=== PATIENT | female | born 1965 | race Asian ===

== ENCOUNTER 2019-06-18 23:28 | Inpatient (IN) | payer MEDICARE, MEDICAID ==
[~2019-06-18] VITALS: Ht 165.1 cm; Wt 72.0 kg
[2019-06-18 23:35] VITALS: BP 120/66
[2019-06-18] MEDS ORDERED: Haloperidol 5mg/ml Inj IM ONE (23:45)
[2019-06-18] MEDS ORDERED: LORazepam Inj 2mg/ml 1ml IV ONE (23:45)
--- NOTE | 2019-06-18 23:46 | Emergency Room Report ---
History of Present Illness General Chief Complaint: General Complaint Source: Patient, Medical Record, PMD Present Illness HPI This is a 53-year-old female from a [facility]. She has a history of schizophrenia. She presents with chief plane of agitation. She was sent in by the psychiatrist Dr. Dsouza because of agitation. She was not cooperative at the [facility]. She is yelling and combative. She was sent here for evaluation. Patient denies any complaint. No fever chills but no nausea no vomiting. Patient is easily agitated. Not cooperative. History is limited because of her condition. Allergies: Coded Allergies: No Known Allergies (Unverified , 06/18/19) COVID-19 Screening Contact w/high risk pt: No Recent Travel to affected area: No Experienced COVID-19 symptoms?: No Patient History Past Medical History: see triage record, old chart reviewed, psych hx Past Surgical History: none Pertinent Family History: none Social History: Reports: smoking Last Menstrual Period: n/a Now: No Immunizations: other Reviewed Nursing Documentation: PMH: Agreed; PSxH: Agreed Nursing Documentation-PMH Past Medical History: No History, Except For Hx COPD: Yes - COPD History Of Psychiatric Problem: Yes - Schizophrenia Review of Systems Eye: Denies: eye pain, blurred vision ENT: Denies: ear pain, nose congestion, throat swelling Respiratory: Denies: cough, shortness of breath Cardiovascular: Denies: chest pain, palpitations Gastrointestinal: Denies: abdominal pain, diarrhea, nausea, vomiting Musculoskeletal: Denies: back pain, joint pain Skin: Denies: rash Neurological: Denies: headache, numbness Endocrine: Denies: increased thirst, increased urine Hematologic/Lymphatic: Denies: easy bruising All Other Systems: negative except mentioned in HPI Physical Exam Vital Signs Date Time Temp Pulse Resp B/P (MAP) Pulse Ox O2 Delivery O2 Flow Rate FiO2 06/18/19 23:30 98.2 88 18 120/66 (84) 98 Room Air Vitals unremarkable Sp02 EP Interpretation: reviewed, normal General Appearance: well appearing, no apparent distress, alert Head: normocephalic, atraumatic Eyes: bilateral eye PERRL, bilateral eye EOMI ENT: hearing grossly normal, normal pharynx Neck: full range of motion, supple, no meningismus Respiratory: chest non-tender, lungs clear, normal breath sounds Cardiovascular #1: regular rate, rhythm, no murmur Gastrointestinal: normal bowel sounds, non tender, no mass, no organomegaly, no bruit, non-distended Musculoskeletal: back normal, normal range of motion, gait/station normal Neurologic: alert, oriented Psychiatric: other - Easily agitated Medical Decision Making Diagnostic Impression: Primary Impression: Agitation Additional Impression: Schizophrenia, acute ER Course Patient presents with agitation and schizophrenia. Better after sedation and antipsychotic here. Dr. Medrano called here initially. I discussed the case with Dr. Smith primary care doctor at the [facility]. He asked that patient be admitted to Dr. Patino. I contacted Dr. Patino for admission. Rhythm Strip Diag. Results EP Interpretation: yes Rate: 88 Rhythm: NSR, no PVC's, no ectopy Last Vital Signs Date Time Temp Pulse Resp B/P (MAP) Pulse Ox O2 Delivery O2 Flow Rate FiO2 06/18/19 23:30 98.2 88 18 120/66 (84) 98 Room Air Status: improved Disposition: ADMITTED INPATIENT Condition: Serious Santos Gtz MD Jun 18, 2019 23:46
[2019-06-19 00:30] VITALS: BP 173/85
[2019-06-19 00:30] LABS: BASOPHILS % (AUTO) 0.7 % (0.0-2.0); EOSINOPHILS % (AUTO) 1.5 % (0.0-3.0); HEMATOCRIT 42.7 % (37.0-47.0); HEMOGLOBIN 14.8 G/DL (12.0-16.0); LYMPHOCYTES % (AUTO) 24.5 % (20.0-45.0); MEAN CORPUSCULAR VOLUME 90 FL (80-99); MONOCYTES % (AUTO) 7.9 % (1.0-10.0); NEUTROPHILS % (AUTO) 65.4 % (45.0-75.0); PLATELET COUNT 326 K/UL (150-450); RED BLOOD COUNT 4.72 M/UL (4.20-5.40); WHITE BLOOD COUNT 11.1 K/UL (4.8-10.8)
[2019-06-19 00:40] LABS: ANION GAP 12 mmol/L (5-15); BLOOD UREA NITROGEN 15 mg/dL (7-18); CALCIUM 9.4 MG/DL (8.5-10.1); CARBON DIOXIDE 27 MMOL/L (21-32); CHLORIDE 106 MMOL/L (98-107); CREATININE 0.9 MG/DL (0.55-1.30); POTASSIUM 3.8 MMOL/L (3.5-5.1); SODIUM 144 MMOL/L (136-145)
[2019-06-19] MEDS ORDERED: METOPROLOL TART25 MG ORAL (01:59)
[2019-06-19] MEDS ORDERED: RISPERIDONE3 MG ORAL (01:59)
[2019-06-19] MEDS ORDERED: DOCUSATE SODIU250 MG ORAL ×2 (01:59→04:33)
[2019-06-19] MEDS ORDERED: MYLANTA TONIGH355 ML PO (01:59)
[2019-06-19] MEDS ORDERED: MILK OF MA2400 MG/10 ORAL (01:59)
[2019-06-19] MEDS ORDERED: TRILEPTAL300 MG PO (01:59)
[2019-06-19] MEDS ORDERED: ACETAMINOPHEN325 M1 ORAL (01:59)
[2019-06-19] MEDS ORDERED: BENZTROPINE MESY1 MG ORAL (04:33)
[2019-06-19] MEDS ORDERED: MIRTAZAPINE30 MG ORAL (04:33)
[2019-06-19] MEDS ORDERED: TRILEPTAL600 MG PO (04:33)
[2019-06-19] MEDS ORDERED: ALBUTEROL2.5 MG/3 M INH ×2 (04:33)
[2019-06-19] MEDS ORDERED: RISPERDAL2 MG ORAL (04:33)
[2019-06-19 08:00] VITALS: BP 149/86
[2019-06-19] MEDS ORDERED: LORazepam Inj 2mg/ml 1ml IV PRN ×2 (08:00→17:15)
[2019-06-19] MEDS ORDERED: Docusate 250mg cap ORAL PRN (08:00)
[2019-06-19] MEDS ORDERED: Haloperidol 5mg/ml Inj IM PRN ×2 (08:00→23:45)
[2019-06-19] MEDS ORDERED: Albuterol ud Inhalation HHN PRN ×2 (08:00)
[2019-06-19] MEDS: OXcarbazepine 150mg tab ORAL SCH ×2 (09:37→17:08)
[2019-06-19] MEDS: Heparin 5000 units/ml inj SUBQ SCH ×2 (09:43→21:00)
[2019-06-19 12:00] VITALS: BP 133/76
--- NOTE | 2019-06-19 12:49 | Consultation ---
History of Present Illness General Date patient seen: Jun 19, 2019 Chief Complaint: General Complaint Present Illness HPI 53-year-old female a history of schizophrenia from a senior living presents with chief plane of agitation. She was sent in by the psychiatrist. She was not cooperative at the senior living. She is yelling and combative. She was sent here for evaluation. Patient denies any complaint. No fever chills but no nausea no vomiting. Patient is easily agitated. Not cooperative. History is limited because of her condition. Currently when I was interviewing her, she is very calm and doesn't have any complains. Allergies: Coded Allergies: No Known Allergies (Unverified , 06/18/19) Medication History Scheduled Metoprolol Tartrate* (Metoprolol Tartrate*), 25 MG ORAL EVERY 12 HOURS, ( Reported) Scheduled PRN Acetaminophen* (Acetaminophen 325MG Tablet*), 325 MG ORAL Q4H PRN for , ( Reported) Albuterol Sulfate* (Albuterol Sulfate Hhn*), 3 ML INH Q6H PRN for Shortness of Breath, (Reported) Albuterol Sulfate* (Albuterol Sulfate Hhn*), 3 ML INH EVERY 8 HOURS PRN for Shortness of Breath, (Reported) Benztropine Mesylate* (Benztropine Mesylate*), 1 MG ORAL BID PRN for Restlessness, (Reported) Docusate Sodium* (Docusate Sodium*), 250 MG ORAL NEEDED PRN for Constipation, (Reported) Mirtazapine* (Remeron*), 30 MG ORAL BEDTIME PRN for Agitation, (Reported) Oxcarbazepine* (Trileptal*), 300 MG PO BID PRN for For Seizures, (Reported) Risperidone* (Risperdal*), 3 MG ORAL BID PRN for Agitation, (Reported) Miscellaneous Medications Calcium Carb/Mag Hydrox/Simeth (Mylanta Tonight 800-270-80/10), 355 ML PO, ( Reported) Discontinued Medications Docusate Sodium* (Docusate Sodium*), 250 MG ORAL TWICE A DAY, (Reported) Discontinued Reason: MD discontinued med Magnesium Hydroxide* (Milk Of Magnesia*), 30 ML ORAL DAILY, (Reported) Discontinued Reason: Medication dose changed Oxcarbazepine (Trileptal), 300 MG PO, (Reported) Discontinued Reason: Medication dose changed Risperidone (Risperidone), 3 MG ORAL, (Reported) Discontinued Reason: Medication dose changed Patient History Healthcare decision maker Resuscitation status Full Code Advanced Directive on File Past Medical/Surgical History Past Medical/Surgical History: (1) Schizophrenia, acute Review of Systems All Other Systems: negative except mentioned in HPI Physical Exam General Appearance: WD/WN Lines, tubes and drains: peripheral HEENT: normocephalic, atraumatic Neck: non-tender, normal alignment Respiratory/Chest: chest wall non-tender, lungs clear Cardiovascular/Chest: normal peripheral pulses, normal rate Abdomen: normal bowel sounds, non tender Genitourinary/Rectal: normal genital exam Extremities: normal range of motion Last 24 Hour Vital Signs Date Time Temp Pulse Resp B/P (MAP) Pulse Ox O2 Delivery O2 Flow Rate FiO2 06/19/19 12:00 97.5 70 18 133/76 (95) 95 06/19/19 09:37 84 149/86 06/19/19 09:00 Room Air 06/19/19 08:00 97.9 84 20 149/86 (107) 99 06/19/19 02:47 Room Air 06/19/19 02:00 98.5 74 18 134/82 99 Room Air 06/19/19 00:30 98.5 80 18 173/85 98 Room Air 06/18/19 23:35 88 18 Room Air 06/18/19 23:35 98.2 77 18 120/66 98 Room Air 06/18/19 23:30 98.2 88 18 120/66 (84) 98 Room Air Intake and Output 06/18/19 06/19/19 19:00 07:00 Intake Total 700 ml Balance 700 ml Intake Oral 700 ml # Voids 3 Laboratory Tests Test 06/19/19 00:20 White Blood Count 11.1 K/UL (4.8-10.8) H Red Blood Count 4.72 M/UL (4.20-5.40) Hemoglobin 14.8 G/DL (12.0-16.0) Hematocrit 42.7 % (37.0-47.0) Mean Corpuscular Volume 90 FL (80-99) Mean Corpuscular Hemoglobin 31.4 PG (27.0-31.0) H Mean Corpuscular Hemoglobin Concent 34.7 G/DL (32.0-36.0) Red Cell Distribution Width 11.0 % (11.6-14.8) L Platelet Count 326 K/UL (150-450) Mean Platelet Volume 5.9 FL (6.5-10.1) L Neutrophils (%) (Auto) 65.4 % (45.0-75.0) Lymphocytes (%) (Auto) 24.5 % (20.0-45.0) Monocytes (%) (Auto) 7.9 % (1.0-10.0) Eosinophils (%) (Auto) 1.5 % (0.0-3.0) Basophils (%) (Auto) 0.7 % (0.0-2.0) Sodium Level 144 MMOL/L (136-145) Potassium Level 3.8 MMOL/L (3.5-5.1) Chloride Level 106 MMOL/L (98-107) Carbon Dioxide Level 27 MMOL/L (21-32) Anion Gap 12 mmol/L (5-15) Blood Urea Nitrogen 15 mg/dL (7-18) Creatinine 0.9 MG/DL (0.55-1.30) Estimat Glomerular Filtration Rate > 60 mL/min (>60) Glucose Level 114 MG/DL (74-106) H Calcium Level 9.4 MG/DL (8.5-10.1) Height (Feet): 5 Height (Inches): 5.00 Weight (Pounds): 159 Medications Current Medications Medications (Trade) Dose Ordered Sig/Carla Route PRN Reason Start Time Stop Time Status Last Admin Dose Admin Acetaminophen (Tylenol) 325 mg Q4H PRN ORAL 06/19/19 08:00 07/19/19 07:59 Al Hydroxide/Mg Hydroxide (Mylanta) 30 ml Q6H PRN ORAL Abdominal cramps 06/19/19 08:00 07/19/19 07:59 Albuterol Sulfate (Proventil) 2.5 mg Q6H PRN HHN Shortness of Breath 06/19/19 08:00 06/24/19 07:59 Benztropine Mesylate (Cogentin) 1 mg BID PRN ORAL Restlessness 06/19/19 08:00 07/19/19 07:59 Docusate Sodium (Colace) 250 mg NEEDED PRN ORAL Constipation 06/19/19 08:00 07/19/19 07:59 Haloperidol Lactate (Haldol) 4 mg Q4H PRN IM Agitation 06/19/19 08:00 08/03/19 07:59 Heparin Sodium (Porcine) (Heparin 5000 units/ml) 5,000 units EVERY 12 HOURS SUBQ 06/19/19 09:00 08/03/19 08:59 Lorazepam (Ativan 2mg/ml 1ml) 1 mg Q6H PRN IV For Anxiety 06/19/19 08:00 06/26/19 07:59 Metoprolol Tartrate (Lopressor) 25 mg EVERY 12 HOURS ORAL 06/19/19 09:00 09/17/19 08:59 06/19/19 09:37 Mirtazapine (Remeron) 30 mg BEDTIME ORAL 06/19/19 21:00 09/17/19 20:59 Ondansetron HCl (Zofran) 4 mg PRN PRN IVP Nausea & Vomiting 06/19/19 01:30 Oxcarbazepine (TrileptaL) 300 mg BID ORAL 06/19/19 09:00 07/19/19 08:59 06/19/19 09:37 Risperidone (RisperDAL) 3 mg BID PRN ORAL Agitation 06/19/19 08:15 08/03/19 08:14 06/19/19 09:43 Assessment/Plan Problem List: (1) Schizophrenia, acute ICD Codes: F23 - Brief psychotic disorder SNOMED: 088771930 (2) Agitation ICD Codes: R45.1 - Restlessness and agitation SNOMED: 671338705 Assessment/Plan: psych evaluation symptomatic treatment continue senior living meds dvt prophylaxis. Brenda Davila MD Jun 19, 2019 12:49
[2019-06-19 16:00] VITALS: BP 140/77
[2019-06-19] MEDS: LORazepam 1mg tab ORAL PRN (17:08)
[2019-06-19] MEDS ORDERED: Haloperidol Decanoate (Long Acting) 50mg Inj IM SCH (18:00)
--- NOTE | 2019-06-19 18:20 | History & Physical ---
History and Physical History & Physicial Dictated for Int Med-Dr Patino no. [id number]. Toni Johnson MD Jun 19, 2019 18:20
[2019-06-19 20:00] VITALS: BP 148/86
[2019-06-20] VITALS (11 sets, daily range): BP systolic 97–150; BP diastolic 61–95
[2019-06-20 06:36] LABS: BASOPHILS % (AUTO) 1.3 % (0.0-2.0); EOSINOPHILS % (AUTO) 3.4 % (0.0-3.0); HEMATOCRIT 43.5 % (37.0-47.0); HEMOGLOBIN 14.9 G/DL (12.0-16.0); LYMPHOCYTES % (AUTO) 32.3 % (20.0-45.0); MEAN CORPUSCULAR VOLUME 92 FL (80-99); MONOCYTES % (AUTO) 9.3 % (1.0-10.0); NEUTROPHILS % (AUTO) 53.7 % (45.0-75.0); PLATELET COUNT 296 K/UL (150-450); RED BLOOD COUNT 4.74 M/UL (4.20-5.40); RED CELL DISTRIBUTION WIDTH 11.1 % (11.6-14.8); WHITE BLOOD COUNT 7.4 K/UL (4.8-10.8)
[2019-06-20 07:33] LABS: ANION GAP 9 mmol/L (5-15); BLOOD UREA NITROGEN 14 mg/dL (7-18); CALCIUM 8.6 MG/DL (8.5-10.1); CARBON DIOXIDE 28 MMOL/L (21-32); CHLORIDE 107 MMOL/L (98-107); CREATININE 0.8 MG/DL (0.55-1.30); PHOSPHORUS 4.1 MG/DL (2.5-4.9); POTASSIUM 4.1 MMOL/L (3.5-5.1); SODIUM 144 MMOL/L (136-145)
--- NOTE | 2019-06-20 08:43 | History and Physical Report ---
DATE OF ADMISSION: 06/19/2019 CHIEF COMPLAINT: Patient is a 53-year-old female, who presents with a chief complaint of increased agitation. HISTORY OF PRESENT ILLNESS: Patient has a history of schizophrenia. Patient is a resident of [facility]. According to staff at [facility], patient has been increasingly agitated over the past 2 days. Patient has been throwing things at the staff. Patient was running up and down the hallways. Patient presented to [facility] emergency room. Patient was admitted with chief complaint of increased agitation. REVIEW OF SYSTEMS: Unable to assess secondary to patient's mental status. PAST MEDICAL HISTORY: Significant for: 1. Hypertension. 2. Schizophrenia. 3. Depression. 4. Chronic obstructive pulmonary disease. 5. Parkinson disease. 6. Extrapyramidal movement disorder. 7. Osteoarthritis. 8. Obesity. 9. Seizure disorder. 10. Gastroesophageal reflux disease. 11. Hypercholesterolemia. PAST SURGICAL HISTORY: Unknown. CURRENT MEDICATIONS: 1. Albuterol 2.5 mg nebulized q.4h. p.r.n. 2. Benztropine 1 mg p.o. twice daily. 3. Metoprolol 25 mg p.o. twice daily. 4. Remeron 30 mg p.o. at bedtime. 5. Trileptal 300 mg p.o. twice daily. 6. Risperdal 3 mg p.o. twice daily. ALLERGIES: No known drug allergies. SOCIAL HISTORY: Patient is single. Patient denies tobacco or alcohol use. PHYSICAL EXAMINATION: VITAL SIGNS: Temperature 98.2, respirations 18, pulse 80, blood pressure 120/66, pulse oximetry 98% on room air. GENERAL: Patient is a well-developed, well-nourished, obese, female, in no apparent distress. HEENT: Eyes, pupils are equal and responsive to light and accommodation. Extraocular movements are intact. NECK: Supple without lymphadenopathy. CHEST: Lungs are clear to auscultation bilaterally without wheezes or rales. CARDIOVASCULAR: Regular rhythm and rate. S1 and S2 are normal without murmurs, rubs, or gallops. ABDOMEN: Soft, nontender, and nondistended. Positive bowel sounds. No evidence of hepatosplenomegaly. Currently, no rebound or guarding noted. EXTREMITIES: Negative for clubbing, cyanosis, or edema. RECTAL/GENITAL: Not performed. NEUROLOGIC: Cranial nerves II through XII are grossly intact without focal deficits. LABORATORY STUDIES: WBC 1.1, hemoglobin 14.8, hematocrit 42.7, platelets 326,000. Sodium 144, potassium 3.8, chloride 106, CO2 27, BUN 15, creatinine 0.9, glucose 114. ASSESSMENT: This is a 53-year-old female: 1. Increased agitation. 2. Schizophrenia. 3. Chronic obstructive pulmonary disease. 4. Parkinson disease. 5. Extrapyramidal movement disorder. 6. Hypertension. 7. Seizure disorder. 8. Hypercholesterolemia. 9. Gastroesophageal reflux disease. TREATMENT: 1. Increased agitation/schizophrenia. A Psychiatry consultation has been obtained with Dr. Medrano. We will follow recommendations of Psychiatry. 2. Chronic obstructive pulmonary disease. Continue albuterol nebulizer as above. A Pulmonary consultation has been obtained with Dr. Brenda Davila. 3. Parkinson disease/extrapyramidal movement disorder. Continue Cogentin as above. 4. Hypertension. Continue metoprolol as above. 5. History of seizure disorder. 6. Hypercholesterolemia. 7. Gastroesophageal reflux disease. Toni Johnson M.D. DR: BRADLY JOB#: [id number] CC:
[2019-06-20] MEDS: Heparin 5000 units/ml inj SUBQ SCH ×2 (09:00→21:00)
--- NOTE | 2019-06-20 09:14 | Consultation ---
DATE OF CONSULTATION: HISTORY OF PRESENT ILLNESS: The patient is a 53-year-old female with a history of schizophrenia, who is well known to this physician from her correction. The patient has been having episodes of agitation and screaming, yelling, psychotic episodes, mood lability, being uncooperative with the staff and not following the directions. The patient was initially send to [facility], however the emergency room was shot down, therefore, she was returned to the facility. At the facility, she became more agitated and psychotic. Therefore, she was transferred to the [facility]. The patient is uncooperative during examination, she was refusing questions. Poor insight. The patient is uncooperative and repeatedly asking for food and snacks. PAST PSYCHIATRIC HISTORY: Significant for schizophrenia and several psychiatric hospitalization, treated with risperidone at the facility, has been refusing to take all her antipsychotic medications. PAST MEDICAL HISTORY: Nonsignificant. ALLERGIES: No known drug allergies. SUBSTANCE ABUSE HISTORY: No known history of illicit drug use or alcohol. MENTAL STATUS EXAMINATION: The patient is alert and oriented to time, self, place, and situation. Mood is labile. Affect is flat. Thought process is concrete. Thought content, there is no suicidal or homicidal ideation. Cognition is intact. Insight and judgment is poor. ASSESSMENT: [place] I: 1. Schizophrenia. 2. Rule out schizoaffective disorder. AXIS II: Deferred. AXIS III: As above. AXIS IV: Moderate. AXIS V: 50. PLAN: 1. Discontinue the Ativan as needed. Change the Haldol to 5 milligram every 6 hours. 2. Discontinue Remeron. 3. Risperidone 2 milligram h.s. 4. [place]. 5. Haldol decanoate was given. Altagracia Medrano M.D. DR: Tony JOB#: [id number] CC:
[2019-06-20] MEDS: OXcarbazepine 150mg tab ORAL SCH ×2 (10:00→17:09)
[2019-06-20] MEDS: Benztropine 1mg tab ORAL PRN (10:00)
[2019-06-20] MEDS: LORazepam 1mg tab ORAL PRN ×2 (10:00→17:09)
--- NOTE | 2019-06-20 22:28 | Internal Med Progress Note ---
Subjective Physician Name Fredy Patino Attending Physician Fredy Patino MD Current Medications Medications (Trade) Dose Ordered Sig/Carla Route PRN Reason Start Time Stop Time Status Last Admin Dose Admin Acetaminophen (Tylenol) 650 mg Q4H PRN ORAL Mild Pain (Pain Scale 1-3) 06/19/19 16:00 07/19/19 07:59 Al Hydroxide/Mg Hydroxide (Mylanta) 30 ml Q6H PRN ORAL Abdominal cramps 06/19/19 08:00 07/19/19 07:59 Albuterol Sulfate (Proventil) 2.5 mg Q6H PRN HHN Shortness of Breath 06/19/19 08:00 06/24/19 07:59 Benztropine Mesylate (Cogentin) 1 mg BID PRN ORAL Restlessness 06/19/19 08:00 07/19/19 07:59 06/20/19 10:00 Docusate Sodium (Colace) 250 mg NEEDED PRN ORAL Constipation 06/19/19 08:00 07/19/19 07:59 Haloperidol Decanoate (Haldol Decanoate(Long Acting)) 100 mg QMONTH IM 06/19/19 18:00 08/03/19 17:59 06/19/19 18:25 Haloperidol Lactate (Haldol) 5 mg EVERY 6 HOURS PRN IM Agitation 06/19/19 23:45 08/03/19 23:44 Heparin Sodium (Porcine) (Heparin 5000 units/ml) 5,000 units EVERY 12 HOURS SUBQ 06/19/19 09:00 08/03/19 08:59 [place] Carbonate ([place] Carbonate) 600 mg BEDTIME ORAL 06/20/19 21:00 09/18/19 20:59 Lorazepam (Ativan) 2 mg Q6H PRN ORAL For Anxiety 06/19/19 17:15 06/26/19 17:14 06/20/19 17:09 Metoprolol Tartrate (Lopressor) 25 mg EVERY 12 HOURS ORAL 06/19/19 09:00 09/17/19 08:59 06/20/19 10:00 Oxcarbazepine (TrileptaL) 300 mg BID ORAL 06/19/19 09:00 07/19/19 08:59 06/20/19 17:09 Risperidone (RisperDAL) 2 mg BEDTIME ORAL 06/20/19 21:00 6/1/20 20:59 Allergies: Coded Allergies: No Known Allergies (Unverified , 06/18/19) Subjective agitated, sedated, refuse med's. Objective Last Vital Signs Date Time Temp Pulse Resp B/P (MAP) Pulse Ox O2 Delivery O2 Flow Rate FiO2 06/20/19 20:00 98.2 77 18 129/71 (90) 95 06/20/19 09:00 Room Air Laboratory Tests Test 06/20/19 05:40 White Blood Count 7.4 K/UL (4.8-10.8) Red Blood Count 4.74 M/UL (4.20-5.40) Hemoglobin 14.9 G/DL (12.0-16.0) Hematocrit 43.5 % (37.0-47.0) Mean Corpuscular Volume 92 FL (80-99) Mean Corpuscular Hemoglobin 31.5 PG (27.0-31.0) H Mean Corpuscular Hemoglobin Concent 34.3 G/DL (32.0-36.0) Red Cell Distribution Width 11.1 % (11.6-14.8) L Platelet Count 296 K/UL (150-450) Mean Platelet Volume 6.3 FL (6.5-10.1) L Neutrophils (%) (Auto) 53.7 % (45.0-75.0) Lymphocytes (%) (Auto) 32.3 % (20.0-45.0) Monocytes (%) (Auto) 9.3 % (1.0-10.0) Eosinophils (%) (Auto) 3.4 % (0.0-3.0) H Basophils (%) (Auto) 1.3 % (0.0-2.0) Sodium Level 144 MMOL/L (136-145) Potassium Level 4.1 MMOL/L (3.5-5.1) Chloride Level 107 MMOL/L (98-107) Carbon Dioxide Level 28 MMOL/L (21-32) Anion Gap 9 mmol/L (5-15) Blood Urea Nitrogen 14 mg/dL (7-18) Creatinine 0.8 MG/DL (0.55-1.30) Estimat Glomerular Filtration Rate > 60 mL/min (>60) Glucose Level 101 MG/DL (74-106) Calcium Level 8.6 MG/DL (8.5-10.1) Phosphorus Level 4.1 MG/DL (2.5-4.9) Magnesium Level 2.0 MG/DL (1.8-2.4) Thyroid Stimulating Hormone (TSH) 11.994 uiU/mL (0.358-3.740) Microbiology Date/Time Source Procedure Growth Status 06/19/19 01:50 Nasal Nares MRSA Culture - Final NO METHICILLIN RESISTANT STAPH AUREUS... Complete Intake and Output 06/19/19 06/20/19 19:00 07:00 # Voids 4 3 Objective General: No acute distress, awake and agitated. HEENT: NCAT, sclera anicteric, PERRL, EOMI. Neck: Supple, no significant jugular venous distention, Lungs: Good inspiratory effort, decrease air at bases, no Wheeze or Rales. Heart: Regular rate and rhythm, normal S1/S2, no murmurs. Abdomen: soft, nontender, nondistended. Normoactive bowel sounds, Morbid obesity. / Rectal: Refused and deferred. Extremities: No Cyanosis , clubbing or edema. Neuro: A&O x 3, Able to move all extremities Skin: warm, no rashes or lesions Psych: anxious Assessment/Plan Assessment/Plan 1. Increased agitation. 2. Schizophrenia. 3. Chronic obstructive pulmonary disease. 4. Parkinson disease. 5. Extrapyramidal movement disorder. 6. Hypertension. 7. Seizure disorder. 8. Hypercholesterolemia. 9. Gastroesophageal reflux disease. TREATMENT: 1. Increased agitation/schizophrenia. A Psychiatry consultation has been obtained with Dr. Medrano. We will follow recommendations of Psychiatry. 2. Chronic obstructive pulmonary disease. Continue albuterol nebulizer as above. A Pulmonary consultation has been obtained with Dr. Brenda Davila. 3. Parkinson disease/extrapyramidal movement disorder. Continue Cogentin as above. 4. Hypertension. Continue metoprolol as above. 5. History of seizure disorder. 6. Hypercholesterolemia. 7. Gastroesophageal reflux disease. Fredy Patino MD Jun 20, 2019 22:28
--- NOTE | 2019-06-20 23:13 | Psych Consult Progress Note ---
Psychiatry Progress Note Psychiatry Progress Note Subjective the pt is internally preoccupied and responds to internal stimuli. the pt doesnt want to take meds and the staff has to offer and encourage her to take meds many times. the pt has poor insight and constantly asks for snacks. Medications Current Medications Medications (Trade) Dose Ordered Sig/Carla Route PRN Reason Start Time Stop Time Status Last Admin Dose Admin Acetaminophen (Tylenol) 650 mg Q4H PRN ORAL Mild Pain (Pain Scale 1-3) 06/19/19 16:00 07/19/19 07:59 Al Hydroxide/Mg Hydroxide (Mylanta) 30 ml Q6H PRN ORAL Abdominal cramps 06/19/19 08:00 07/19/19 07:59 Albuterol Sulfate (Proventil) 2.5 mg Q6H PRN HHN Shortness of Breath 06/19/19 08:00 06/24/19 07:59 Benztropine Mesylate (Cogentin) 1 mg BID PRN ORAL Restlessness 06/19/19 08:00 07/19/19 07:59 06/20/19 10:00 Docusate Sodium (Colace) 250 mg NEEDED PRN ORAL Constipation 06/19/19 08:00 07/19/19 07:59 Haloperidol Decanoate (Haldol Decanoate(Long Acting)) 100 mg QMONTH IM 06/19/19 18:00 08/03/19 17:59 06/19/19 18:25 Haloperidol Lactate (Haldol) 5 mg EVERY 6 HOURS PRN IM Agitation 06/19/19 23:45 08/03/19 23:44 Heparin Sodium (Porcine) (Heparin 5000 units/ml) 5,000 units EVERY 12 HOURS SUBQ 06/19/19 09:00 08/03/19 08:59 [place] Carbonate ([place] Carbonate) 600 mg BEDTIME ORAL 06/20/19 21:00 09/18/19 20:59 06/20/19 22:35 Lorazepam (Ativan) 2 mg Q6H PRN ORAL For Anxiety 06/19/19 17:15 06/26/19 17:14 06/20/19 17:09 Metoprolol Tartrate (Lopressor) 25 mg EVERY 12 HOURS ORAL 06/19/19 09:00 09/17/19 08:59 06/20/19 22:35 Oxcarbazepine (TrileptaL) 300 mg BID ORAL 06/19/19 09:00 07/19/19 08:59 06/20/19 17:09 Risperidone (RisperDAL) 2 mg BEDTIME ORAL 06/20/19 21:00 08/04/19 20:59 06/20/19 22:35 Allergies: Coded Allergies: No Known Allergies (Unverified , 06/18/19) Objective Data Height (Feet): 5 Height (Inches): 5.00 Weight (Pounds): 158 General Appearance: WD/WN, no apparent distress, alert, overweight, alert oriented x3 Appearance: disheveled Behavior Mannerisms: poor eye contact Mental Status Exam - Affect: constricted Mental Status Exam - Mood: depressed Speech: clear Mental Status Exam - Thought P: illogical, disorganized Perceptual Disturbances: auditory Mental Status Exam - Suicidal: not present Assessment/Plan Problem List: (1) Schizophrenia, acute ICD Codes: F23 - Brief psychotic disorder SNOMED: [id number] Assessment/Plan: risperdal 4mg po qhs halsol dec was given yesterday lithium. tye and ativan Altagracia Garcia MD Jun 20, 2019 23:13
[2019-06-21 08:00] VITALS: BP 154/74
--- NOTE | 2019-06-21 08:01 | Pulmonology Progress Note ---
Assessment/Plan Assessment/Plan ASSESSMENT Schizophrenia COPD Elevated TSH Hypertension Parkinson disease Mild leukocytosis, likely reactive -resolved Seizure disorder Parkinson's disease Osteoarthritis PLAN of CARE MS floor psychiatric medication regimen optimized as per psychiatrist O2 HHN PRN pulse ox remained stable on room air mild initial leukocytosis resolved, likely reactive elevated TSH, check free T4 T3 BP management with beta-blockers DVT prophylaxis seizure precaution supportive care case discussed and evaluated by supervising physician Subjective Allergies: Coded Allergies: No Known Allergies (Unverified , 06/18/19) Subjective slightly anxious, pacing the room, but following commands no signs of respiratory distress Objective Last 24 Hour Vital Signs Date Time Temp Pulse Resp B/P (MAP) Pulse Ox O2 Delivery O2 Flow Rate FiO2 06/20/19 22:35 77 129/71 06/20/19 21:00 Room Air 06/20/19 20:00 98.2 77 18 129/71 (90) 95 06/20/19 16:00 98.5 76 19 122/84 (97) 95 06/20/19 12:00 97.9 66 18 137/77 (97) 97 06/20/19 10:00 70 132/69 06/20/19 09:00 Room Air 06/20/19 08:00 97.7 70 19 132/69 (90) 98 Intake and Output 06/20/19 06/21/19 19:00 07:00 Intake Total 1200 ml 1740 ml Balance 1200 ml 1740 ml Intake Oral 1200 ml 1740 ml # Voids 4 4 General Appearance: no acute distress, other HEENT: normocephalic, atraumatic, anicteric, mucous membranes moist Respiratory/Chest: lungs clear, no accessory muscle use Cardiovascular: normal rate Abdomen: normal bowel sounds, soft, non tender Extremities: no edema, pedal pulses normal Neurologic/Psychiatric: alert, oriented x 3, responsive, other - anxious Musculoskeletal: normal muscle bulk Microbiology Date/Time Source Procedure Growth Status 06/19/19 01:50 Nasal Nares MRSA Culture - Final NO METHICILLIN RESISTANT STAPH AUREUS... Complete Current Medications Medications (Trade) Dose Ordered Sig/Carla Route PRN Reason Start Time Stop Time Status Last Admin Dose Admin Acetaminophen (Tylenol) 650 mg Q4H PRN ORAL Mild Pain (Pain Scale 1-3) 06/19/19 16:00 07/19/19 07:59 Al Hydroxide/Mg Hydroxide (Mylanta) 30 ml Q6H PRN ORAL Abdominal cramps 06/19/19 08:00 07/19/19 07:59 Albuterol Sulfate (Proventil) 2.5 mg Q6H PRN HHN Shortness of Breath 06/19/19 08:00 06/24/19 07:59 Benztropine Mesylate (Cogentin) 1 mg BID PRN ORAL Restlessness 06/19/19 08:00 07/19/19 07:59 06/20/19 10:00 Docusate Sodium (Colace) 250 mg NEEDED PRN ORAL Constipation 06/19/19 08:00 07/19/19 07:59 Haloperidol Decanoate (Haldol Decanoate(Long Acting)) 100 mg QMONTH IM 06/19/19 18:00 08/03/19 17:59 06/19/19 18:25 Haloperidol Lactate (Haldol) 5 mg EVERY 6 HOURS PRN IM Agitation 06/19/19 23:45 08/03/19 23:44 Heparin Sodium (Porcine) (Heparin 5000 units/ml) 5,000 units EVERY 12 HOURS SUBQ 06/19/19 09:00 08/03/19 08:59 [place] Carbonate ([place] Carbonate) 600 mg BEDTIME ORAL 06/20/19 21:00 09/18/19 20:59 06/20/19 22:35 Lorazepam (Ativan) 2 mg Q6H PRN ORAL For Anxiety 06/19/19 17:15 06/26/19 17:14 06/20/19 17:09 Metoprolol Tartrate (Lopressor) 25 mg EVERY 12 HOURS ORAL 06/19/19 09:00 09/17/19 08:59 06/20/19 22:35 Oxcarbazepine (TrileptaL) 300 mg BID ORAL 06/19/19 09:00 07/19/19 08:59 06/20/19 17:09 Risperidone (RisperDAL) 4 mg BEDTIME ORAL 06/21/19 21:00 08/05/19 20:59 Estela Phillips [employer] Jun 21, 2019 08:01
[2019-06-21] MEDS: OXcarbazepine 150mg tab ORAL SCH ×2 (10:00→17:43)
[2019-06-21] MEDS: Heparin 5000 units/ml inj SUBQ SCH ×2 (10:00→20:34)
[2019-06-21 10:22] LABS: BASOPHILS % (AUTO) 0.9 % (0.0-2.0); HEMATOCRIT 43.9 % (37.0-47.0); HEMOGLOBIN 14.8 G/DL (12.0-16.0); LYMPHOCYTES % (AUTO) 31.1 % (20.0-45.0); MEAN CORPUSCULAR VOLUME 91 FL (80-99); MONOCYTES % (AUTO) 9.8 % (1.0-10.0); NEUTROPHILS % (AUTO) 55.2 % (45.0-75.0); PLATELET COUNT 327 K/UL (150-450); RED BLOOD COUNT 4.81 M/UL (4.20-5.40); WHITE BLOOD COUNT 8.6 K/UL (4.8-10.8)
[2019-06-21] MEDS: Benztropine 1mg tab ORAL PRN (10:44)
[2019-06-21] MEDS: LORazepam 1mg tab ORAL PRN ×2 (10:44→17:44)
[2019-06-21 10:53] LABS: ANION GAP 10 mmol/L (5-15); BLOOD UREA NITROGEN 15 mg/dL (7-18); CALCIUM 8.8 MG/DL (8.5-10.1); CARBON DIOXIDE 26 MMOL/L (21-32); CHLORIDE 107 MMOL/L (98-107); CREATININE 0.8 MG/DL (0.55-1.30); SODIUM 143 MMOL/L (136-145)
--- NOTE | 2019-06-21 11:40 | Internal Med Progress Note ---
Subjective Date of Service: Jun 21, 2019 Physician Name ElizabethToni Attending Physician Fredy Patino MD Current Medications Medications (Trade) Dose Ordered Sig/Carla Route PRN Reason Start Time Stop Time Status Last Admin Dose Admin Acetaminophen (Tylenol) 650 mg Q4H PRN ORAL Mild Pain (Pain Scale 1-3) 06/19/19 16:00 07/19/19 07:59 Al Hydroxide/Mg Hydroxide (Mylanta) 30 ml Q6H PRN ORAL Abdominal cramps 06/19/19 08:00 07/19/19 07:59 Albuterol Sulfate (Proventil) 2.5 mg Q6H PRN HHN Shortness of Breath 06/19/19 08:00 06/24/19 07:59 Benztropine Mesylate (Cogentin) 1 mg BID PRN ORAL Restlessness 06/19/19 08:00 07/19/19 07:59 06/21/19 10:44 Docusate Sodium (Colace) 250 mg NEEDED PRN ORAL Constipation 06/19/19 08:00 07/19/19 07:59 Haloperidol Decanoate (Haldol Decanoate(Long Acting)) 100 mg QMONTH IM 06/19/19 18:00 08/03/19 17:59 06/19/19 18:25 Haloperidol Lactate (Haldol) 5 mg EVERY 6 HOURS PRN IM Agitation 06/19/19 23:45 08/03/19 23:44 Heparin Sodium (Porcine) (Heparin 5000 units/ml) 5,000 units EVERY 12 HOURS SUBQ 06/19/19 09:00 08/03/19 08:59 [place] Carbonate ([place] Carbonate) 600 mg BEDTIME ORAL 06/20/19 21:00 09/18/19 20:59 06/20/19 22:35 Lorazepam (Ativan) 2 mg Q6H PRN ORAL For Anxiety 06/19/19 17:15 06/26/19 17:14 06/21/19 10:44 Metoprolol Tartrate (Lopressor) 25 mg EVERY 12 HOURS ORAL 06/19/19 09:00 09/17/19 08:59 06/20/19 22:35 Oxcarbazepine (TrileptaL) 300 mg BID ORAL 06/19/19 09:00 07/19/19 08:59 4/17/20 17:09 Risperidone (RisperDAL) 4 mg BEDTIME ORAL 06/21/19 21:00 08/05/19 20:59 Allergies: Coded Allergies: No Known Allergies (Unverified , 06/18/19) ROS Limited/Unobtainable: Yes Subjective 53 YO F with history of schizophrenia admitted with increased agitation. Cover for Int [facility]-Dr Patino Objective Last Vital Signs Date Time Temp Pulse Resp B/P (MAP) Pulse Ox O2 Delivery O2 Flow Rate FiO2 06/21/19 10:00 91 154/74 06/21/19 09:00 Room Air 06/21/19 08:00 97.0 20 97 Laboratory Tests Test 06/21/19 10:05 White Blood Count 8.6 K/UL (4.8-10.8) Red Blood Count 4.81 M/UL (4.20-5.40) Hemoglobin 14.8 G/DL (12.0-16.0) Hematocrit 43.9 % (37.0-47.0) Mean Corpuscular Volume 91 FL (80-99) Mean Corpuscular Hemoglobin 30.8 PG (27.0-31.0) Mean Corpuscular Hemoglobin Concent 33.8 G/DL (32.0-36.0) Red Cell Distribution Width 11.0 % (11.6-14.8) L Platelet Count 327 K/UL (150-450) Mean Platelet Volume 5.6 FL (6.5-10.1) L Neutrophils (%) (Auto) 55.2 % (45.0-75.0) Lymphocytes (%) (Auto) 31.1 % (20.0-45.0) Monocytes (%) (Auto) 9.8 % (1.0-10.0) Eosinophils (%) (Auto) 3.0 % (0.0-3.0) Basophils (%) (Auto) 0.9 % (0.0-2.0) Sodium Level 143 MMOL/L (136-145) Potassium Level 4.0 MMOL/L (3.5-5.1) Chloride Level 107 MMOL/L (98-107) Carbon Dioxide Level 26 MMOL/L (21-32) Anion Gap 10 mmol/L (5-15) Blood Urea Nitrogen 15 mg/dL (7-18) Creatinine 0.8 MG/DL (0.55-1.30) Estimat Glomerular Filtration Rate > 60 mL/min (>60) Glucose Level 154 MG/DL (74-106) H Calcium Level 8.8 MG/DL (8.5-10.1) Free Thyroxine 0.81 NG/DL (0.76-1.46) Free Triiodothyronine 2.4 pg/mL (2.3-4.2) Microbiology Date/Time Source Procedure Growth Status 06/19/19 01:50 Nasal Nares MRSA Culture - Final NO METHICILLIN RESISTANT STAPH AUREUS... Complete Intake and Output 06/20/19 06/21/19 19:00 07:00 Intake Total 1200 ml 1740 ml Balance 1200 ml 1740 ml Intake Oral 1200 ml 1740 ml # Voids 4 4 Assessment/Plan Assessment/Plan ASSESSMENT: This is a 53-year-old female: 1. Increased agitation. 2. Schizophrenia. 3. Chronic obstructive pulmonary disease. 4. Parkinson disease. 5. Extrapyramidal movement disorder. 6. Hypertension. 7. Seizure disorder. 8. Hypercholesterolemia. 9. Gastroesophageal reflux disease. TREATMENT: 1. Increased agitation/schizophrenia. A Psychiatry consultation has been obtained with Dr. Medrano. Continue haldol, lithium and risperdal per recommendations of Psychiatry. 2. Chronic obstructive pulmonary disease. Continue albuterol nebulizer as above. A Pulmonary consultation has been obtained with Dr. Brenda Davila. 3. Parkinson disease/extrapyramidal movement disorder. Continue Cogentin as above. 4. Hypertension. Continue metoprolol as above. 5. History of seizure disorder. 6. Hypercholesterolemia. 7. Gastroesophageal reflux disease. 8. Full code 9. DVT prophylaxis=patient refusing SQ heparin Toni Johnson MD Jun 21, 2019 11:40
[2019-06-21 16:00] VITALS: BP 149/85
[2019-06-21 20:21] VITALS: BP 145/75
--- NOTE | 2019-06-22 01:59 | Progress Note ---
DATE: 06/21/2019 SUBJECTIVE: The patient is still difficult to redirect, needs prompting to take her medication, responding to internal stimuli. I spoke to the nurse. The patient took her daily medications this morning as she was getting agitated. MENTAL STATUS EXAMINATION: The patient is alert and oriented times self, place, and situation. Mood is irritable. Thought process is concrete. Thought content, no suicidal or homicidal ideations. Cognition is impaired. Insight and judgment, impaired. ASSESSMENT: Schizophrenia. PLAN: 1. Continue lithium. 2. Continue risperidone. 3. Ativan as needed. 4. Continue to follow and readjust her medications. Altagracia Medrano M.D. DR: Breezy JOB#: [id number] CC:
--- NOTE | 2019-06-22 08:29 | Pulmonology Progress Note ---
Assessment/Plan Assessment/Plan ASSESSMENT Schizophrenia COPD Elevated TSH Hypertension Parkinson disease Mild leukocytosis, likely reactive -resolved Seizure disorder Parkinson's disease Osteoarthritis PLAN of CARE MS floor psychiatric medication regimen optimized as per psychiatrist O2 HHN PRN pulse ox remained stable on room air mild initial leukocytosis resolved, likely reactive elevated TSH, free T4 T3 WNL, likely subclinical hypothyroidism, repeat TFT in 1 month BP management with beta-blockers DVT prophylaxis seizure precaution supportive care case discussed and evaluated by supervising physician Subjective Allergies: Coded Allergies: No Known Allergies (Unverified , 06/18/19) Subjective slightly anxious, but following commands no signs of respiratory distress Objective Last 24 Hour Vital Signs Date Time Temp Pulse Resp B/P (MAP) Pulse Ox O2 Delivery O2 Flow Rate FiO2 06/22/19 07:05 86 20 97 Room Air 21 06/21/19 20:32 88 20 98 Room Air 21 06/21/19 20:30 89 145/75 06/21/19 20:21 96.7 89 20 145/75 (98) 99 06/21/19 20:02 Room Air 06/21/19 16:00 97.6 88 18 149/85 (106) 0 06/21/19 10:00 91 154/74 06/21/19 09:00 Room Air Intake and Output 06/21/19 06/22/19 19:00 07:00 Intake Total 720 ml Balance 720 ml Intake Oral 720 ml # Voids 5 Objective General Appearance: no acute distress, other HEENT: normocephalic, atraumatic, anicteric, mucous membranes moist Respiratory/Chest: lungs clear, no accessory muscle use Cardiovascular: normal rate Abdomen: normal bowel sounds, soft, non tender Extremities: no edema, pedal pulses normal Neurologic/Psychiatric: alert, oriented x 3, responsive, anxious Musculoskeletal: normal muscle bulk Laboratory Tests 06/21/19 10:05: White Blood Count 8.6, Red Blood Count 4.81, Hemoglobin 14.8, Hematocrit 43.9, Mean Corpuscular Volume 91, Mean Corpuscular Hemoglobin 30.8, Mean Corpuscular Hemoglobin Concent 33.8, Red Cell Distribution Width 11.0L, Platelet Count 327, Mean Platelet Volume 5.6L, Neutrophils (%) (Auto) 55.2, Lymphocytes (%) (Auto) 31.1, Monocytes (%) (Auto) 9.8, Eosinophils (%) (Auto) 3.0, Basophils (%) (Auto ) 0.9, Sodium Level 143, Potassium Level 4.0, Chloride Level 107, Carbon Dioxide Level 26, Anion Gap 10, Blood Urea Nitrogen 15, Creatinine 0.8, Estimat Glomerular Filtration Rate > 60, Glucose Level 154H, Calcium Level 8.8, Free Thyroxine 0.81, Free Triiodothyronine 2.4 Current Medications Medications (Trade) Dose Ordered Sig/Carla Route PRN Reason Start Time Stop Time Status Last Admin Dose Admin Acetaminophen (Tylenol) 650 mg Q4H PRN ORAL Mild Pain (Pain Scale 1-3) 06/19/19 16:00 07/19/19 07:59 Al Hydroxide/Mg Hydroxide (Mylanta) 30 ml Q6H PRN ORAL Abdominal cramps 06/19/19 08:00 07/19/19 07:59 Albuterol Sulfate (Proventil) 2.5 mg Q6H PRN HHN Shortness of Breath 06/19/19 08:00 06/24/19 07:59 Benztropine Mesylate (Cogentin) 1 mg BID PRN ORAL Restlessness 06/19/19 08:00 07/19/19 07:59 06/21/19 10:44 Docusate Sodium (Colace) 250 mg NEEDED PRN ORAL Constipation 06/19/19 08:00 07/19/19 07:59 Haloperidol Decanoate (Haldol Decanoate(Long Acting)) 100 mg QMONTH IM 06/19/19 18:00 08/03/19 17:59 06/19/19 18:25 Haloperidol Lactate (Haldol) 5 mg EVERY 6 HOURS PRN IM Agitation 06/19/19 23:45 08/03/19 23:44 Heparin Sodium (Porcine) (Heparin 5000 units/ml) 5,000 units EVERY 12 HOURS SUBQ 06/19/19 09:00 08/03/19 08:59 [place] Carbonate ([place] Carbonate) 600 mg BEDTIME ORAL 06/20/19 21:00 09/18/19 20:59 06/21/19 20:29 Lorazepam (Ativan) 2 mg Q6H PRN ORAL For Anxiety 06/19/19 17:15 06/26/19 17:14 06/21/19 17:44 Metoprolol Tartrate (Lopressor) 25 mg EVERY 12 HOURS ORAL 06/19/19 09:00 09/17/19 08:59 06/21/19 20:30 Oxcarbazepine (TrileptaL) 300 mg BID ORAL 06/19/19 09:00 07/19/19 08:59 06/21/19 17:43 Risperidone (RisperDAL) 4 mg BEDTIME ORAL 06/21/19 21:00 08/05/19 20:59 06/21/19 20:30 Estela Phillips [employer] Jun 22, 2019 08:29
[2019-06-22] MEDS: Heparin 5000 units/ml inj SUBQ SCH ×2 (09:00→20:52)
[2019-06-22] MEDS: OXcarbazepine 150mg tab ORAL SCH ×2 (09:08→17:46)
[2019-06-22] MEDS: LORazepam 1mg tab ORAL PRN ×2 (09:09→17:46)
[2019-06-22 12:28] LABS: EOSINOPHILS % (AUTO) 2.3 % (0.0-3.0); HEMATOCRIT 40.2 % (37.0-47.0); HEMOGLOBIN 13.9 G/DL (12.0-16.0); LYMPHOCYTES % (AUTO) 21.3 % (20.0-45.0); MEAN CORPUSCULAR VOLUME 91 FL (80-99); MONOCYTES % (AUTO) 9.5 % (1.0-10.0); NEUTROPHILS % (AUTO) 65.9 % (45.0-75.0); PLATELET COUNT 298 K/UL (150-450); WHITE BLOOD COUNT 9.1 K/UL (4.8-10.8)
[2019-06-22 13:00] LABS: ANION GAP 13 mmol/L (5-15); BLOOD UREA NITROGEN 15 mg/dL (7-18); CALCIUM 8.6 MG/DL (8.5-10.1); CARBON DIOXIDE 24 MMOL/L (21-32); CHLORIDE 106 MMOL/L (98-107); CREATININE 0.7 MG/DL (0.55-1.30); POTASSIUM 3.9 MMOL/L (3.5-5.1); SODIUM 143 MMOL/L (136-145)
[2019-06-22] MEDS ORDERED: HALDOL INJECT5 MG/ML IM (14:27)
[2019-06-22] MEDS ORDERED: HALDOL DECONATE IM (14:27)
[2019-06-22] MEDS ORDERED: LITHIUM CARBON300 MG ORAL (14:27)
[2019-06-22] MEDS ORDERED: RISPERDAL1 MG ORAL (14:27)
--- NOTE | 2019-06-22 14:28 | Internal Med Progress Note ---
Subjective Date of Service: Jun 22, 2019 Physician Name ElizabethToni Attending Physician Fredy Patino MD Current Medications Medications (Trade) Dose Ordered Sig/Carla Route PRN Reason Start Time Stop Time Status Last Admin Dose Admin Acetaminophen (Tylenol) 650 mg Q4H PRN ORAL Mild Pain (Pain Scale 1-3) 06/19/19 16:00 07/19/19 07:59 Al Hydroxide/Mg Hydroxide (Mylanta) 30 ml Q6H PRN ORAL Abdominal cramps 06/19/19 08:00 07/19/19 07:59 Albuterol Sulfate (Proventil) 2.5 mg Q6H PRN HHN Shortness of Breath 06/19/19 08:00 06/24/19 07:59 Benztropine Mesylate (Cogentin) 1 mg BID PRN ORAL Restlessness 06/19/19 08:00 07/19/19 07:59 06/21/19 10:44 Docusate Sodium (Colace) 250 mg NEEDED PRN ORAL Constipation 06/19/19 08:00 07/19/19 07:59 Haloperidol Decanoate (Haldol Decanoate(Long Acting)) 100 mg QMONTH IM 06/19/19 18:00 08/03/19 17:59 06/19/19 18:25 Haloperidol Lactate (Haldol) 5 mg EVERY 6 HOURS PRN IM Agitation 06/19/19 23:45 08/03/19 23:44 Heparin Sodium (Porcine) (Heparin 5000 units/ml) 5,000 units EVERY 12 HOURS SUBQ 06/19/19 09:00 08/03/19 08:59 [place] Carbonate ([place] Carbonate) 600 mg BEDTIME ORAL 06/20/19 21:00 09/18/19 20:59 06/21/19 20:29 Lorazepam (Ativan) 2 mg Q6H PRN ORAL For Anxiety 06/19/19 17:15 06/26/19 17:14 06/22/19 09:09 Metoprolol Tartrate (Lopressor) 25 mg EVERY 12 HOURS ORAL 06/19/19 09:00 09/17/19 08:59 06/21/19 20:30 Oxcarbazepine (TrileptaL) 300 mg BID ORAL 06/19/19 09:00 07/19/19 08:59 4/19/20 09:08 Risperidone (RisperDAL) 4 mg BEDTIME ORAL 06/21/19 21:00 08/05/19 20:59 06/21/19 20:30 Allergies: Coded Allergies: No Known Allergies (Unverified , 06/18/19) ROS Limited/Unobtainable: No Constitutional: Reports: no symptoms HEENT: Reports: no symptoms Cardiovascular: Reports: no symptoms Respiratory: Reports: no symptoms Gastrointestinal/Abdominal: Reports: no symptoms Genitourinary: Reports: no symptoms Neurologic/Psychiatric: Reports: no symptoms Subjective 53 YO F with history of schizophrenia admitted with increased agitation. Cover for Int Med-Dr Patino. Less agitated Objective Last Vital Signs Date Time Temp Pulse Resp B/P (MAP) Pulse Ox O2 Delivery O2 Flow Rate FiO2 06/22/19 09:00 Room Air 06/22/19 07:05 86 20 97 21 06/21/19 20:30 145/75 06/21/19 20:21 96.7 General Appearance: WD/WN, no apparent distress, alert EENT: PERRL/EOMI, normal ENT inspection Neck: non-tender, normal alignment, supple, normal inspection Cardiovascular: normal peripheral pulses, normal rate, regular rhythm, no gallop/murmur, no JVD Respiratory/Chest: chest wall non-tender, lungs clear, normal breath sounds, no respiratory distress, no accessory muscle use Abdomen: normal bowel sounds, non tender, soft, no organomegaly, no mass Extremities: normal range of motion Neurologic: elevator builder II-XII grossly normal, no motor/sensory deficits Skin: normal pigmentation, warm/dry Laboratory Tests Test 06/22/19 11:30 White Blood Count 9.1 K/UL (4.8-10.8) Red Blood Count 4.40 M/UL (4.20-5.40) Hemoglobin 13.9 G/DL (12.0-16.0) Hematocrit 40.2 % (37.0-47.0) Mean Corpuscular Volume 91 FL (80-99) Mean Corpuscular Hemoglobin 31.7 PG (27.0-31.0) H Mean Corpuscular Hemoglobin Concent 34.6 G/DL (32.0-36.0) Red Cell Distribution Width 11.0 % (11.6-14.8) L Platelet Count 298 K/UL (150-450) Mean Platelet Volume 5.8 FL (6.5-10.1) L Neutrophils (%) (Auto) 65.9 % (45.0-75.0) Lymphocytes (%) (Auto) 21.3 % (20.0-45.0) Monocytes (%) (Auto) 9.5 % (1.0-10.0) Eosinophils (%) (Auto) 2.3 % (0.0-3.0) Basophils (%) (Auto) 1.0 % (0.0-2.0) Sodium Level 143 MMOL/L (136-145) Potassium Level 3.9 MMOL/L (3.5-5.1) Chloride Level 106 MMOL/L (98-107) Carbon Dioxide Level 24 MMOL/L (21-32) Anion Gap 13 mmol/L (5-15) Blood Urea Nitrogen 15 mg/dL (7-18) Creatinine 0.7 MG/DL (0.55-1.30) Estimat Glomerular Filtration Rate > 60 mL/min (>60) Glucose Level 130 MG/DL (74-106) H Calcium Level 8.6 MG/DL (8.5-10.1) Intake and Output 06/21/19 06/22/19 19:00 07:00 Intake Total 720 ml Balance 720 ml Intake Oral 720 ml # Voids 5 Assessment/Plan Assessment/Plan ASSESSMENT: This is a 53-year-old female: 1. Increased agitation. 2. Schizophrenia. 3. Chronic obstructive pulmonary disease. 4. Parkinson disease. 5. Extrapyramidal movement disorder. 6. Hypertension. 7. Seizure disorder. 8. Hypercholesterolemia. 9. Gastroesophageal reflux disease. TREATMENT: 1. Increased agitation/schizophrenia. A Psychiatry consultation has been obtained with Dr. Medrano. Continue haldol, lithium and risperdal per recommendations of Psychiatry. 2. Chronic obstructive pulmonary disease. Continue albuterol nebulizer as above. A Pulmonary consultation has been obtained with Dr. Brenda Davila. 3. Parkinson disease/extrapyramidal movement disorder. Continue Cogentin as above. 4. Hypertension. Continue metoprolol as above. 5. History of seizure disorder. 6. Hypercholesterolemia. 7. Gastroesophageal reflux disease. 8. Full code 9. DVT prophylaxis=patient refusing SQ heparin 10. Discharge to [facility] when bed available. Toni Johnson MD Jun 22, 2019 14:28
[2019-06-22 16:00] VITALS: BP 143/87
[2019-06-22 20:00] VITALS: BP 139/74
--- NOTE | 2019-06-22 22:00 | Progress Note ---
DATE: 06/22/2019 SUBJECTIVE: Mental condition is unchanged since previous encounter. The patient is not suicidal or homicidal, still needs prompting to take her medication, uncooperative with the examination, poor insight. MENTAL STATUS EXAMINATION: Alert and oriented times self, place, situation. Mood is neutral. Affect is flat. Thought process is concrete. Thought content, no suicidal or homicidal ideation. Cognition is impaired. Insight and judgment is impaired. ASSESSMENT: Schizophrenia. PLAN: 1. Risperidone 4 mg b.i.d. 2. [place]. 3. We will continue to follow and readjust the medications. Altagracia Medrano M.D. DR: Luba JOB#: [id number] CC:
[2019-06-23 04:00] VITALS: BP 145/88
[2019-06-23] MEDS: Heparin 5000 units/ml inj SUBQ SCH (09:00)
[2019-06-23] MEDS: OXcarbazepine 150mg tab ORAL SCH (09:00)
--- NOTE | 2019-06-23 13:25 | Pulmonology Progress Note ---
Assessment/Plan Problems: (1) Schizophrenia, acute (2) Agitation Assessment/Plan doing better behavior controlled pt/ot dc planning Subjective ROS Limited/Unobtainable: No Constitutional: Reports: no symptoms HEENT: Repors: no symptoms Allergies: Coded Allergies: No Known Allergies (Unverified , 06/18/19) Objective Last 24 Hour Vital Signs Date Time Temp Pulse Resp B/P (MAP) Pulse Ox O2 Delivery O2 Flow Rate FiO2 06/23/19 09:00 Room Air 06/23/19 04:00 98.0 75 18 145/88 (107) 95 06/22/19 21:00 Room Air 06/22/19 20:55 81 139/74 06/22/19 20:00 97.2 81 18 139/74 (95) 95 06/22/19 16:00 97.1 85 16 143/87 (105) 96 Intake and Output 06/22/19 06/23/19 19:00 07:00 Intake Total 1000 ml Balance 1000 ml Intake Oral 1000 ml # Voids 4 3 General Appearance: WD/WN HEENT: normocephalic, atraumatic Respiratory/Chest: chest wall non-tender, normal breath sounds Cardiovascular: normal peripheral pulses, regular rhythm Abdomen: soft, non tender, non distended Extremities: no cyanosis, no clubbing Skin: no rash Current Medications Medications (Trade) Dose Ordered Sig/Carla Route PRN Reason Start Time Stop Time Status Last Admin Dose Admin Acetaminophen (Tylenol) 650 mg Q4H PRN ORAL Mild Pain (Pain Scale 1-3) 06/19/19 16:00 07/19/19 07:59 Al Hydroxide/Mg Hydroxide (Mylanta) 30 ml Q6H PRN ORAL Abdominal cramps 06/19/19 08:00 07/19/19 07:59 Albuterol Sulfate (Proventil) 2.5 mg Q6H PRN HHN Shortness of Breath 06/19/19 08:00 06/24/19 07:59 Benztropine Mesylate (Cogentin) 1 mg BID PRN ORAL Restlessness 06/19/19 08:00 07/19/19 07:59 06/21/19 10:44 Docusate Sodium (Colace) 250 mg NEEDED PRN ORAL Constipation 06/19/19 08:00 07/19/19 07:59 Haloperidol Decanoate (Haldol Decanoate(Long Acting)) 100 mg QMONTH IM 06/19/19 18:00 08/03/19 17:59 06/19/19 18:25 Haloperidol Lactate (Haldol) 5 mg EVERY 6 HOURS PRN IM Agitation 06/19/19 23:45 08/03/19 23:44 Heparin Sodium (Porcine) (Heparin 5000 units/ml) 5,000 units EVERY 12 HOURS SUBQ 06/19/19 09:00 08/03/19 08:59 [place] Carbonate ([place] Carbonate) 600 mg BEDTIME ORAL 06/20/19 21:00 09/18/19 20:59 06/22/19 20:55 Lorazepam (Ativan) 2 mg Q6H PRN ORAL For Anxiety 06/19/19 17:15 06/26/19 17:14 06/22/19 17:46 Metoprolol Tartrate (Lopressor) 25 mg EVERY 12 HOURS ORAL 06/19/19 09:00 09/17/19 08:59 06/22/19 20:55 Oxcarbazepine (TrileptaL) 300 mg BID ORAL 06/19/19 09:00 07/19/19 08:59 06/22/19 17:46 Risperidone (RisperDAL) 4 mg BID ORAL 06/23/19 09:00 08/07/19 08:59 Brenda Davila MD Jun 23, 2019 13:25
--- NOTE | 2019-06-23 13:28 | Internal Med Progress Note ---
Subjective Date of Service: Jun 23, 2019 Physician Name ElizabethToni Attending Physician Fredy Patino MD Current Medications Medications (Trade) Dose Ordered Sig/Carla Route PRN Reason Start Time Stop Time Status Last Admin Dose Admin Acetaminophen (Tylenol) 650 mg Q4H PRN ORAL Mild Pain (Pain Scale 1-3) 06/19/19 16:00 07/19/19 07:59 Al Hydroxide/Mg Hydroxide (Mylanta) 30 ml Q6H PRN ORAL Abdominal cramps 06/19/19 08:00 07/19/19 07:59 Albuterol Sulfate (Proventil) 2.5 mg Q6H PRN HHN Shortness of Breath 06/19/19 08:00 06/24/19 07:59 Benztropine Mesylate (Cogentin) 1 mg BID PRN ORAL Restlessness 06/19/19 08:00 07/19/19 07:59 06/21/19 10:44 Docusate Sodium (Colace) 250 mg NEEDED PRN ORAL Constipation 06/19/19 08:00 07/19/19 07:59 Haloperidol Decanoate (Haldol Decanoate(Long Acting)) 100 mg QMONTH IM 06/19/19 18:00 08/03/19 17:59 06/19/19 18:25 Haloperidol Lactate (Haldol) 5 mg EVERY 6 HOURS PRN IM Agitation 06/19/19 23:45 08/03/19 23:44 Heparin Sodium (Porcine) (Heparin 5000 units/ml) 5,000 units EVERY 12 HOURS SUBQ 06/19/19 09:00 08/03/19 08:59 [place] Carbonate ([place] Carbonate) 600 mg BEDTIME ORAL 06/20/19 21:00 09/18/19 20:59 06/22/19 20:55 Lorazepam (Ativan) 2 mg Q6H PRN ORAL For Anxiety 06/19/19 17:15 06/26/19 17:14 06/22/19 17:46 Metoprolol Tartrate (Lopressor) 25 mg EVERY 12 HOURS ORAL 06/19/19 09:00 09/17/19 08:59 06/22/19 20:55 Oxcarbazepine (TrileptaL) 300 mg BID ORAL 06/19/19 09:00 07/19/19 08:59 06/22/19 17:46 Risperidone (RisperDAL) 4 mg BID ORAL 06/23/19 09:00 08/07/19 08:59 Allergies: Coded Allergies: No Known Allergies (Unverified , 06/18/19) ROS Limited/Unobtainable: Yes Subjective 53 YO F with history of schizophrenia admitted with increased agitation. Cover for Int Med-Dr Patino. Less agitated Objective Last Vital Signs Date Time Temp Pulse Resp B/P (MAP) Pulse Ox O2 Delivery O2 Flow Rate FiO2 06/23/19 09:00 Room Air 06/23/19 04:00 98.0 75 18 145/88 (107) 95 06/22/19 07:05 21 General Appearance: WD/WN, no apparent distress, alert EENT: PERRL/EOMI, normal ENT inspection Neck: non-tender, normal alignment, supple, normal inspection Cardiovascular: normal peripheral pulses, normal rate, regular rhythm, no gallop/murmur, no JVD Respiratory/Chest: chest wall non-tender, lungs clear, normal breath sounds, no respiratory distress, no accessory muscle use Abdomen: normal bowel sounds, non tender, soft, no organomegaly, no mass Extremities: normal range of motion, non-tender Neurologic: oyster floater II-XII grossly normal, no motor/sensory deficits Skin: normal pigmentation, warm/dry Intake and Output 06/22/19 06/23/19 19:00 07:00 Intake Total 1000 ml Balance 1000 ml Intake Oral 1000 ml # Voids 4 3 Assessment/Plan Assessment/Plan ASSESSMENT: This is a 53-year-old female: 1. Increased agitation. 2. Schizophrenia. 3. Chronic obstructive pulmonary disease. 4. Parkinson disease. 5. Extrapyramidal movement disorder. 6. Hypertension. 7. Seizure disorder. 8. Hypercholesterolemia. 9. Gastroesophageal reflux disease. TREATMENT: 1. Increased agitation/schizophrenia. A Psychiatry consultation has been obtained with Dr. Medrano. Continue haldol, lithium and risperdal per recommendations of Psychiatry. 2. Chronic obstructive pulmonary disease. Continue albuterol nebulizer as above. A Pulmonary consultation has been obtained with Dr. Brenda Davila. 3. Parkinson disease/extrapyramidal movement disorder. Continue Cogentin as above. 4. Hypertension. Continue metoprolol as above. 5. History of seizure disorder. 6. Hypercholesterolemia. 7. Gastroesophageal reflux disease. 8. Full code 9. DVT prophylaxis=patient refusing SQ heparin 10. Discharge to [facility] when bed available. Toni Johnson MD Jun 23, 2019 13:28
--- NOTE | 2019-06-24 04:30 | Progress Note ---
DATE: 06/23/2019 SUBJECTIVE: Patient is doing well. No behavior issues at this time. Calm, cooperative. Compliant with medication. MENTAL STATUS EXAMINATION: Patient is alert, disoriented to situation. Mood is anxious. Affect is flat. Thought process, disorganized. Thought content, no suicidal or homicidal ideation. ASSESSMENT: Schizophrenia. PLAN: We will continue current psychotropic medications. Altagracia Medrano M.D. DR: JACQUIE JOB#: [id number] CC:
--- NOTE | 2019-06-24 08:42 | Discharge Summary ---
Discharge Summary Discharge Summary _ DATE OF ADMISSION: 06/19/2019 DATE OF DISCHARGE: 06/23/2019 DISCHARGED BY: Dr. Patino REASON FOR ADMISSION: 53 years old female with past medical history of schizophrenia, hypertension, COPD, Parkinson disease, depression, osteoarthritis, obesity, seizure disorder, GERD, hypercholesterolemia, presented with chief complaint of increased agitation. According to the nursing staff at the facility, patient was increasingly agitated over the past 2 days. Patient was throwing things at the staff. Patient was sent for evaluation. Upon evaluation vital signs were stable. Laboratory work-up revealed WBC 11.1, hemoglobin 14.8, hematocrit 42.7. Stable electrolytes and renal parameters. Glucose 114. EKG revealed sinus rhythm , no acute ischemic changes. Psychiatrist consulted by emergency room physician. Patient admitted for agitation and acute schizophrenia. CONSULTANTS: pulmonary Dr. Davila psychiatrist [facility] COURSE: Patient admitted to medical surgical floor. Psychiatric medication regimen was optimized as per psychiatrist. Seizure precaution maintained. Supplemental oxygen and pulmonary toilet were on board as needed. Pulse oximetry remained stable on room air. Mild initial leukocytosis resolved , likely was reactive. Noted elevated TSH, free T4 T3 within normal limits, likely subclinical hypothyroidism. Repeat TFT in 1 month. Blood pressure was managed with beta-arielle , remained stable. DVT prophylaxis provided. Other SNF medication continued. Supportive care provided. Patient's behavior improved, and she was ready for discharge to longterm facility for continuation of care. FINAL DIAGNOSES: Acute schizophrenia Agitation COPD Hypertension Parkinson disease Extrapyramidal movement disorder Seizure disorder Osteoarthritis Mild leukocytosis, likely reactive- resolved Elevated TSH, probably subclinical hypothyroidism Hypercholesterolemia GERD DISCHARGE MEDICATIONS: See Medication Reconciliation list. DISCHARGE INSTRUCTIONS: Patient was discharged to the longterm facility. Follow up with medical doctor at the facility. I have been assigned to dictate discharge summary for this account. I was not involved in the patient's management. Estela Phillips NP Jun 24, 2019 08:42
== END 2019-06-23 14:38 | DRG 885 ==
LOC: EDUNIT# 23:28 → EDBD 23:28 → EMR 23:59 → 4E 06-19 00:40 → EDBEDREQ 06-19 01:32
DX: F20.9 Schizophrenia, unspecified (principal); R45.1 Restlessness and agitation; I10 Essential (primary) hypertension; J44.9 Chronic obstructive pulmonary disease, unspecified; G20 Parkinson's disease; M19.90 Unspecified osteoarthritis, unspecified site; G40.909 Epilepsy, unspecified, not intractable, without status epilepticus; K21.9 Gastro-esophageal reflux disease without esophagitis; E78.00 Pure hypercholesterolemia, unspecified
CPT/HCPCS: 36415; 80048; 83735; 84100; 84439; 84443; 84481; 85025; 87081; 94664; 96372; 96374; 99285